=== PATIENT | male | born 1950 | race Caucasian/White ===

== ENCOUNTER → 2016-09-24 | Outpatient (CLI) | payer OTHER ==
--- NOTE | 2016-09-24 14:25 | DI ---
Indication: ITS.REASON: DIAGNOSTIC TESTING LUMBAR SPINE 2-3 VIEWS: Comparison: None Technique: AP lateral and cone-down lateral views Findings: Patient shows narrowing particularly of the L4-5 disc space with mild narrowing at L5 5 S1. No acute fractures are marked malalignments are noted. Incidentally noted is extensive arteriosclerotic calcification in the abdominal aorta with mild fusiform dilatation just above the aortic bifurcation and the distal aorta. Impression: Degenerative changes most pronounced at the L4-5 disc space level which is significantly narrowed. No acute fracture or malalignment noted. .
== END ==
LOC: IMA 12:09
DX: Z02.89 Encounter for other administrative examinations (principal)